=== PATIENT | female | born 1965 | race Hispanic/Latino ===

== ENCOUNTER 2018-02-01 16:38 | Emergency (ER) | payer BC ==
[~2018-02-01] VITALS: Ht 154.9 cm; Wt 53.1 kg
[2018-02-01] MEDS ORDERED: MORPHINE SULFATE INJ 4 MG/ML INJ IV NR (17:00)
[2018-02-01] MEDS ORDERED: SODIUM CHLORIDE 0.9% 1000ML 1,000 ML IV STA (17:02)
[2018-02-01] MEDS ORDERED: ONDANSETRON HCL INJ 2 MG/ML VIAL IV STA (17:02)
[2018-02-01 17:30] LABS: BASOPHILS % 0.2 % (0.0-1.0); EOSINOPHILS % 0.1 % (0.0-6.0); HEMATOCRIT 31.7 % (34.2-44.1); LYMPHOCYTES # (AUTO) 0.8 (1.0-3.2); LYMPHOCYTES % 6.8 % (18.0-39.1); MEAN CORPUSCULAR HEMOGLOBIN 18.9 pg (28-32); MEAN CORPUSCULAR HGB CONC 28.4 g/dL (31-35); MEAN CORPUSCULAR VOLUME 66.6 fL (81-99); MONOCYTES # (AUTO) 0.6 (0.2-0.8); MONOCYTES % 5.4 % (4.4-11.3); NEUTROPHILS # (AUTO) 10.2 (2.1-6.9); NEUTROPHILS % 86.8 % (38.7-80.0); PLATELET COUNT 444 x10e3/uL (140-360); RED BLOOD COUNT 4.76 x10e6/uL (3.6-5.1); RED CELL DISTRIBUTION WIDTH 20.5 % (11.7-14.4)
[2018-02-01 17:37] LABS: CLARITY,URINE SL CLOUDY (CLEAR); COLOR,URINE YELLOW (YELLOW); KETONES,URINE 1+ (NEGATIVE); LEUKOCYTE ESTERASE ,URINE TRACE (NEGATIVE); NITRITE,URINE NEGATIVE (NEGATIVE); PROTEIN,URINE DIPSTICK 2+ (NEGATIVE); URINE UROBILINOGEN 0.2 mg/dL (0.2 - 1)
[2018-02-01 17:38] LABS: BILIRUBIN,URINE 2+ (NEGATIVE)
[2018-02-01 17:43] LABS: INR 1.1; PARTIAL THROMBOPLASTIN TIME 42.8 seconds (23.8-35.5); PROTHROMBIN TIME 15.2 seconds (11.9-14.5)
[2018-02-01 17:44] LABS: BACTERIA,URINE MANY /HPF; EPITHELIAL CELLS,URINE FEW /LPF
[2018-02-01 17:45] LABS: AMORPHOUS SEDIMENT,URINE FEW (FEW); MUCUS,URINE MODERATE (RARE)
[2018-02-01 17:52] LABS: ALANINE AMINOTRANSFERASE 8 IU/L (0-55); ALBUMIN 3.1 g/dL (3.5-5.0); ALBUMIN/GLOBULIN RATIO 0.6 (0.8-2.0); ALKALINE PHOSPHATASE 107 IU/L (40-150); AMYLASE 51 U/L (25-125); ANION GAP 16.4 mmol/L (8-16); BLOOD UREA NITROGEN 11 mg/dL (7-26); BUN/CREATININE RATIO 13 (6-25); CALCIUM 9.5 mg/dL (8.4-10.2); CARBON DIOXIDE 23 mmol/L (22-29); CHLORIDE 102 mmol/L (98-107); CREATINE KINASE 51 IU/L (29-168); CREATININE, SERUM 0.86 mg/dL (0.57-1.11); EST GLOMERULAR FILTRATION RATE > 60 ML/MIN (60-); GLUCOSE 130 mg/dL (74-118); LIPASE 19 U/L (8-78); POTASSIUM 4.4 mmol/L (3.5-5.1); SODIUM 137 mmol/L (136-145)
--- NOTE | 2018-02-01 18:43 | Diagnostic Imaging Report ---
Examination: Single AP view of the chest. COMPARISON: None. INDICATION: Diffuse abdominal pain for 2 days IMPRESSION: 1. Lines and Tubes: None 2. Lungs are well-inflated. Patchy opacity in the right lower lung may reflect summation of vessels and bony shadows versus atelectasis. 3. Cardiomediastinal silhouette is normal. Pulmonary vasculature is normal. 4. No acute bony abnormalities. Signed by: Dr. Oniel Shearer M.D. on 02/01/2018 6:40 PM
--- NOTE | 2018-02-01 19:31 | Diagnostic Imaging Report ---
EXAMINATION: CT of the abdomen and pelvis without contrast. TECHNIQUE: Spiral CT images of the abdomen and pelvis were performed from the lung bases to the lesser trochanters. No intravenous contrast was given per renal stone protocol. Coronal and sagittal reformatted images were obtained. COMPARISON: None. CLINICAL HISTORY:Acute abdominal pain for 2 days, history of uterine cancer (per patient) and partial hysterectomy DISCUSSION: ABSENCE OF INTRAVENOUS CONTRAST DECREASES SENSITIVITY FOR DETECTION OF FOCAL LESIONS AND VASCULAR PATHOLOGY. ABDOMEN/PELVIS: LOWER THORAX: Unremarkable. HEPATOBILIARY: No focal hepatic lesions. No intra or extrahepatic biliary ductal dilation. GALLBLADDER: Peripherally calcified stones in the gallbladder lumen, with the largest measuring approximately 1.1 cm No wall thickening. SPLEEN: No splenomegaly. PANCREAS: No focal masses or ductal dilatation. ADRENALS: No adrenal nodules. KIDNEYS/URETERS: Right kidney shows no stones, hydronephrosis or obstruction. No right ureteral calculi. Markedly atrophic left kidney with marked cortical thinning and hydronephrosis and hydroureter (series 3, image 41 and coronal images 52-59). No left ureteral calculi. PELVIC ORGANS/BLADDER: Bladder is unremarkable. Large soft tissue density predominantly occupying the right pelvis, which measures approximately 12.4 x 9.8 x 10.0 cm (series 3, image 125, sagittal image 51 and coronal image 32). A second soft tissue density extends from the left adnexa into the abdomen above the umbilicus, measuring approximately 11.6 x 7.3 x 14.3 cm (series 3, image 82). The ovaries are not visualized. PERITONEUM/RETROPERITONEUM: Small amount of free fluid in the pelvic cul-de-sac LYMPH NODES: Enlarged left external iliac lymph node measuring 1.7 cm in short axis (series 3, image 126). Likely enlarged left common iliac lymph node which measures 2.0 cm in short axis (series 3, image 67). No other adenopathy is visualized. VESSELS: Unremarkable for noncontrast exam. GI TRACT: No bowel dilation or evidence of obstruction. BONES AND SOFT TISSUES: No aggressive lytic lesions. Soft tissues are unremarkable. IMPRESSION: 1. Large soft tissue densities in the pelvis, with the left one extending superiorly into the mid abdomen. These are highly suspicious for ovarian neoplasm. Recurrent uterine cancer is a possibility, given the patient's history. 2. Enlarged left external iliac and likely left common iliac lymph nodes, suspicious for metastatic disease. 3. Markedly atrophic left kidney with marked cortical thinning and marked hydronephrosis and hydroureter, which is likely chronic secondary to ureteral obstruction from above-described masses. Signed by: Dr. Oniel Shearer M.D. on 02/01/2018 7:28 PM
[2018-02-01] MEDS ORDERED: MORPHINE SULFATE 2 MG/ML SYR IV NR (20:16)
--- NOTE | 2018-02-01 20:25 | Diagnostic Imaging Report ---
EXAMINATION: CT of the abdomen and pelvis with contrast. TECHNIQUE: Spiral CT images of the abdomen and pelvis were performed from the lung bases to the lesser trochanters after the intravenous administration of 80 cc of Isovue 370 and the oral administration of water. Coronal and sagittal reformatted images were obtained. COMPARISON: CT abdomen and pelvis without contrast 02/01/2018 CLINICAL HISTORY:Pelvic masses, history of uterine cancer, abdominal pain for 2 days DISCUSSION: ABDOMEN/PELVIS: LOWER THORAX: Unremarkable. HEPATOBILIARY: No focal hepatic lesions. No intra or extrahepatic biliary ductal dilation. GALLBLADDER: Peripherally calcified stones in the gallbladder lumen, with the largest measuring approximately 1.1 cm No wall thickening. SPLEEN: No splenomegaly. PANCREAS: No focal masses or ductal dilatation. ADRENALS: No adrenal nodules. KIDNEYS/URETERS: Right kidney shows no stones, hydronephrosis or obstruction. No right ureteral calculi. Markedly atrophic left kidney with marked cortical thinning and hydronephrosis and hydroureter. (series 3, image 41 and coronal images 52-59). Abrupt changing caliber of the left ureter in the left pelvis adjacent to the mass described below. No left ureteral calculi. PELVIC ORGANS/BLADDER: Bladder is unremarkable. Large irregularly enhancing soft tissue density mass predominantly occupying the right pelvis, which measures approximately 15.1 x 9.7 x 11.3 cm (series 2, image 62, sagittal image 54 and coronal image 27). The central portion has areas of near fluid density, which may represent necrosis. The shape of this mass is similar to the uterus. A second irregularly shaped, heterogeneously enhancing soft tissue mass extends from the left adnexa into the abdomen above the umbilicus, measuring approximately 12.8 x 7.9 x 16.0 cm (series 2, image 45 and sagittal image 70). Normal appearing ovaries are not visualized. PERITONEUM/RETROPERITONEUM: Small amount of free fluid in the pelvic cul-de-sac and small amount of perihepatic ascites, predominantly below the right lobe tip (series 2, image 38) LYMPH NODES: Enlarged left external iliac lymph node measuring 1.8 cm in short axis (series 2, image 62). Enlarged left common iliac lymph node which measures 2.0 cm in short axis (series 2, image 32). No other adenopathy is visualized. VESSELS: Celiac trunk, superior and inferior mesenteric and bilateral renal arteries are patent. Portal, superior mesenteric and splenic veins are patent.. GI TRACT: No bowel dilation or evidence of obstruction. BONES AND SOFT TISSUES: No aggressive lytic lesions. Soft tissues are unremarkable. IMPRESSION: 1. Large soft tissue masses in the pelvis with the left one extending superiorly into the mid abdomen. The right-sided mass has shape similar to the uterus, and is contiguous with the expected location of the cervix/vaginal cuff and may represent a markedly enlarged uterus with a centrally located endometrial partially necrotic mass. Given the history of uterine cancer, this may represent recurrent neoplasm such as leiomyosarcoma. The left-sided mass is difficult to separate from the right mass and may represent superior extension of neoplasm. Alternatively, these may represent bilateral ovarian neoplasms, as normal ovaries are not identified. Very large uterine fibroids may also be considered, however, less likely given the adenopathy. 2. Left external iliac and left common iliac adenopathy, which is suspicious for metastatic disease. 3. No definite peritoneal implants are identified. Small amount of ascites and fluid in the pelvic cul-de-sac. 4.Markedly atrophic left kidney with marked cortical thinning and marked hydronephrosis and hydroureter, which is likely chronic secondary to ureteral obstruction from above-described left pelvic mass Signed by: Dr. Oniel Shearer M.D. on 02/01/2018 8:22 PM
[2018-02-01] MEDS ORDERED: IOPAMIDOL 370 MG/ML 200 ML INFUS..BTL INJ ONE (23:22)
[2018-02-01] MEDS ORDERED: SODIUM CHLORIDE 0.9% 50ML 50 ML ONE (23:22)
== END 2018-02-01 21:25 | disposition home or self-care (01) ==
LOC: ER 16:38
DX: R10.84 Generalized abdominal pain (principal); Z85.42 Personal history of malignant neoplasm of other parts of uterus
CPT/HCPCS: 36415; 71045; 74176; 74177; 80053; 81001; 82150; 82550; 82553; 83690; 84484; 85025; 85610; 85730; 93005; 99284; J2270 ×2; J2405; J7030; Q9967